=== PATIENT | female | born 1970 | race Caucasian/White ===

== ENCOUNTER → 2020-11-27 11:10 | Outpatient (BNVA) | payer BC, SELFPAY | PROVIDERS: PCP Internal Medicine; Visit Provider Obstetrics & Gynecology | DX: Z12.4 Encounter for screening for malignant neoplasm of cervix (principal) | CPT/HCPCS: 88175 ==

== ENCOUNTER → 2020-12-12 15:54 | Outpatient (BNVA) | payer BC, SELFPAY | PROVIDERS: PCP Internal Medicine; Visit Provider Obstetrics & Gynecology | DX: N93.9 Abnormal uterine and vaginal bleeding, unspecified (principal) | CPT/HCPCS: 76830 ==

== ENCOUNTER → 2020-12-23 12:26 | Outpatient (BNVA) | payer BC, SELFPAY | PROVIDERS: PCP Internal Medicine; Visit Provider Obstetrics & Gynecology | DX: N93.9 Abnormal uterine and vaginal bleeding, unspecified (principal) | CPT/HCPCS: 81025; 88305 ==

== ENCOUNTER 2021-01-03 15:20 | Outpatient (CLI) | payer BC, SELFPAY ==
--- NOTE | 2021-01-03 15:30 | MM_ITS ---
WS: [id number] BILATERAL DIGITAL SCREENING MAMMOGRAPHY WITH CAD CLINICAL INFORMATION: Z12.39 - Encounter for other screening for malignant neoplasm of breast HISTORY: Screening mammogram. No current complaints. History of bilateral breast reduction. COMPARISON: and December 02, 2015. TECHNIQUE: Bilateral CC and MLO views. FINDINGS: Scattered fibroglandular densities bilaterally. A few incidental punctate calcifications. Evidence of bilateral breast reductions. Slightly asymmetric breast tissue upper outer left breast unchanged ove r multiple prior examinations. No suspicious focal mass, asymmetry, calcifications, or architectural distortion. No evidence of malignancy. MM/[place] [id number] IMPRESSION: BI-RADS: 2-Benign FOLLOW UP: 1 Year Follow-up Recommend return to annual screening mammography.
== END 2021-01-03 15:21 | disposition home or self-care (01) ==
LOC: RADSHAW 15:22
PROVIDERS: PCP Internal Medicine; Visit Provider Obstetrics & Gynecology
DX: Z12.31 Encounter for screening mammogram for malignant neoplasm of breast (principal)
CPT/HCPCS: 77067

== ENCOUNTER 2021-10-31 09:15 | Outpatient (CLI) | payer OTHER, SELFPAY ==
--- NOTE | 2021-10-31 09:27 | CT_ITS ---
WS: [id number] CT ABDOMEN AND PELVIS NONCONTRAST HISTORY: RIGHT FLANK PAIN TECHNIQUE: Imaging performed through the abdomen and pelvis. Coronal and sagittal reformats are submi tted. All CT scans at [facility] use at least one of these dose optimization techniques: auto mated exposure control; mA and/or kV adjustment per patient size (includes targeted exams where dose is matched to clinical indication); or iterative reconstruction. DLP: 585.45 mGy.cm COMPARISON: None available. Lower thorax: 3 mm nodule at the LEFT lung base. Noncalcified. Heart is normal size. No hiatal hernia . Liver: Normal size liver. Very vague area of decreased attenuation in the periphery of the RIGHT lobe of the liver. This is too small to characterize and could represent a small cyst. No bile duct dilat ation. Gallbladder: Normal gallbladder. Pancreas: Normal size and attenuation. Normal pancreatic duct. No pancreatitis or mass. Spleen: Normal. Adrenal glands: Normal. No mass. Right kidney: Normal size kidney with no mass or hydronephrosis. Small extrarenal pelvis. Left kidney: Normal size kidney with no mass or hydronephrosis. Aorta: Mild atherosclerosis abdominal aorta with no aneurysm. No free fluid, intraperitoneal air or significant lymphadenopathy. GI tract: There is moderate diffuse fecal retention and constipation. There is increased fluid in the RIGHT colon. No obstructive pattern. The appendix is partially visualized and normal. Increased dens ity within the appendix suggesting developing appendicolith. Abdominal wall: Small umbilical hernia contains fat only. Pelvis: Normal size anteverted uterus. No pelvic masses or ascites. Osseous structures: Small subchondral cyst in the RIGHT superior acetabulum. CT/CT kidney stone [id number] IMPRESSION: 1. No renal obstruction or calcification. 2. No appendicitis. Increasing density within the appendix suggesting an appen dicolith developing. 3. No free fluid or adenopathy. 4. Diffuse constipation.
== END 2021-10-31 09:16 | disposition home or self-care (01) ==
LOC: RAD 09:21
PROVIDERS: PCP Internal Medicine; Visit Provider Internal Medicine
DX: R10.9 Unspecified abdominal pain (principal); K59.00 Constipation, unspecified
CPT/HCPCS: 74176

== ENCOUNTER → 2022-05-29 13:24 | Outpatient (BNVA) | payer OTHER, SELFPAY | PROVIDERS: PCP Internal Medicine; Visit Provider Specialist | DX: R20.0 Anesthesia of skin (principal); R20.2 Paresthesia of skin; G43.109 Migraine with aura, not intractable, without status migrainosus; R29.90 Unspecified symptoms and signs involving the nervous system; G43.101 Migraine with aura, not intractable, with status migrainosus | CPT/HCPCS: 36415; 80053; 84443; 85025; 85651 ==

== ENCOUNTER 2022-06-29 09:19 | Outpatient (CLI) | payer OTHER, SELFPAY ==
--- NOTE | 2022-06-29 09:15 | MR_ITS ---
WS: [id number] MRA HEAD TECHNIQUE: Axial 3-D TOF images obtained with axial images and axial, sagittal, and coronal 2-D refor matted images. CLINICAL INFORMATION: G43.109 - Migraine with aura, not intractable, without st... COMPARISON: MRA 4 29,016 FINDINGS: Distal vertebral arteries are patent. Basilar artery is patent. Normal vascularity to the TUB CHUCKER territo ry bilaterally. 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 Both ICAs are patent at the skull base. Normal vascularity to the MALINDA and MCA territories bilaterally . Azygos MALINDA. No evidence of high-grade proximal stenosis or aneurysm. Hypoplastic RIGHT A1 segment. Overall no significant changes since 2016. MR/MR angio head wo con [id number] IMPRESSION: 1. Stable incidental fenestrated basilar artery. No flow-limiting stenosis. 2. Normal intracranial MRA. No significant changes since 2016.
== END 2022-06-29 09:20 | disposition home or self-care (01) ==
PROVIDERS: PCP Internal Medicine; Visit Provider Specialist
DX: G43.109 Migraine with aura, not intractable, without status migrainosus (principal)
CPT/HCPCS: 70544

== ENCOUNTER 2022-06-29 09:19 | Outpatient (CLI) | payer OTHER, SELFPAY ==
--- NOTE | 2022-06-29 09:30 | MR_ITS ---
WS: [id number] MRI HEAD WITHOUT CONTRAST TECHNIQUE: Sagittal T1, T2 axial, T2 axial FLAIR, axial and coronal T1 images, axial susceptibility w eighted imaging, axial diffusion weighted images, and coronal T2 images were obtained. CLINICAL INFORMATION: G43.109 - Migraine with aura, not intractable, without st... COMPARISON: MRI FINDINGS: No evidence of restricted diffusion to suggest acute ischemia. Ventricular system and basal cisterns are patent. Normal ruiz-white differentiation. No suspicious intracranial signal abnormalities. Seble l posterior fossa. Normal vascular flow voids at the skull base. No extra-axial fluid collections. Mi ld mucosal thickening paranasal sinuses. Mastoid air cells well aerated. Normal optic chiasm and pituitary infundibulum. Temporal lobes and hippocampal formations are normal in appearance. No hemosiderin on susceptibly weighted images. MR/MR head wo con* [id number] IMPRESSION: 1. No evidence of restricted diffusion to suggest acute ischemia. 2. No suspicious intracranial signal abnormalities. 3. Mild mucosal thickening in the paranasal sinuses. Mastoid air cells well ae rated. 4. No hemosiderin on susceptibly weighted images. 5. No acute intracranial findings and no changes since
== END 2022-06-29 09:20 | disposition home or self-care (01) ==
LOC: RAD 09:20
PROVIDERS: PCP Internal Medicine; Visit Provider Specialist
DX: G43.109 Migraine with aura, not intractable, without status migrainosus (principal)
CPT/HCPCS: 70551

== ENCOUNTER 2023-01-25 11:33 | Outpatient (CLI) | payer OTHER, SELFPAY ==
--- NOTE | 2023-01-25 11:44 | MM_ITS ---
WS: [id number] BILATERAL SCREENING DIGITAL TOMOSYNTHESIS MAMMOGRAM WITH CAD HISTORY: SCREENING COMPARISON: 01/03/2021, 11/28/2018 Bilateral CC and MLO views with tomosynthesis and synthetic mammography submitted. Computer aided det ection analyzed. Breast composition: There are scattered areas of fibroglandular density. No suspicious masses, microc alcifications or architectural distortion. MM/[place] [id number] IMPRESSION: BI-RADS: 1-Negative FOLLOW UP: 1 Year Follow-up
== END 2023-01-25 11:34 | disposition home or self-care (01) ==
LOC: RAD 11:37
PROVIDERS: PCP Internal Medicine; Visit Provider Internal Medicine
DX: Z12.31 Encounter for screening mammogram for malignant neoplasm of breast (principal)
CPT/HCPCS: 77063; 77067

== ENCOUNTER 2024-03-23 15:09 | Outpatient (CLI) | payer OTHER, SELFPAY ==
--- NOTE | 2024-03-23 15:18 | MM_ITS ---
WS: [id number] BILATERAL 3D TOMOSYNTHESIS DIGITAL SCREENING MAMMOGRAPHY WITH CAD CLINICAL INFORMATION: SCREENING HISTORY: Screening mammogram. History of breast reduction COMPARISON: 2022 TECHNIQUE: Bilateral CC and MLO views. FINDINGS: Scattered fibroglandular densities bilaterally. No suspicious focal mass, asymmetry, calcifications, or architectural distortion. No evidence of malignancy. A few incidental punctate calcifications. MM/[place] [id number] IMPRESSION: BI-RADS: 2-Benign FOLLOW UP: 1 Year Follow-up Recommend return to annual screening mammography.
== END 2024-03-23 15:10 | disposition home or self-care (01) ==
LOC: RAD 15:11
PROVIDERS: PCP Internal Medicine; Visit Provider Internal Medicine
DX: Z12.31 Encounter for screening mammogram for malignant neoplasm of breast (principal); R92.323 Mammographic fibroglandular density, bilateral breasts
CPT/HCPCS: 77063; 77067

== ENCOUNTER 2025-01-01 11:07 | Emergency (ER) | payer OTHER, SELFPAY ==
[2025-01-01 11:27] VITALS: BP 113/78; PULSE 89; TEMP 37.1; O2SAT 97; BMI 27.4
--- NOTE | 2025-01-01 13:33 | CT_ITS ---
WS: [id number] CT HEAD TECHNIQUE: Noncontrast CT of the head obtained from the skullbase to the vertex. CLINICAL INFORMATION: fairchild COMPARISON: MRI 07/13 DLP: 1025.[address] scans at [facility] use at least one of these dose optimization techniques: automated exposure control; mA and/or kV adjustment per patient size (includes targeted exams where dose is matched to clinical indication); or iterative reconstruction. FINDINGS: No evidence of intracranial hemorrhage or mass effect. Ventricular system and basal cisterns are patent. No extra-axial fluid collections. No evidence of mass or mass effect. Normal ruiz-white differentiation. Mild mucosal thickening in the paranasal sinuses. Small amount of fluid in the sphenoid sinus and ethmoid air cells. Mastoid air cells are well aerated. CT/CT head wo con* [id number] IMPRESSION: 1. No evidence of intracranial hemorrhage or mass effect. 2. Mild ethmoid and sphenoid sinusitis. 3. No acute intracranial findings.
--- NOTE | 2025-01-01 13:38 | W.ED.HA ---
HPI - Headache General: Chief Complaint: Headache Stated Complaint: sent from [employer] for [facility]oss Time Seen by Provider: 01/01/25 13:25 Source: patient Mode of arrival: ambulatory Limitations: no limitations History of Present Illness: 54-year-old female who has a history of ocular migraines she states she been having increasing ocular migraines over the last week. States she has periods of blindness which is common with her ocular migraines she has had some periods of aphasia few days ago as well denies any symptoms today she has a mild headache today. She was concerned as she has had more migraines recently than typical. She did recently have RSV as well. Associated symptoms: Deny chest pain, fever(s), nausea, rash or vomiting Related Data Home Medications ?Medication ?Instructions ?Recorded ?Confirmed atorvastatin 10 mg tablet 20 mg PO DAILY 05/29/22 01/01/25 cholecalciferol (vitamin D3) 50 50 mcg PO DAILY 05/29/22 01/01/25 mcg (2,000 unit) capsule escitalopram oxalate 10 mg tablet 20 mg PO DAILY 05/29/22 01/01/25 (Lexapro) azithromycin 250 mg tablet 250 mg PO DAILY 01/01/25 01/01/25 eszopiclone 1 mg tablet 1 mg PO QPM 01/01/25 01/01/25 progesterone micronized 200 mg 200 mg PO .EVERY OTHER DAY 01/01/25 01/01/25 capsule tirzepatide 2.5 mg/0.5 mL 2.5 mg SUBCUT Q7D 01/01/25 01/01/25 subcutaneous pen injector (Mounjaro) Allergies Allergy/AdvReac Type Severity Reaction Status Date / Time Sulfa (Sulfonamide Allergy [facility] Verified 01/01/25 11:34 Antibiotics) Nico Reaction Review of Systems Const: Denies: fever(s), chills, body aches or change in appetite Eyes: Reports: blurry vision ENMT: Denies: throat pain or dental pain Card: Denies: chest pain Resp: Denies: dyspnea GI: Denies: abdominal pain, nausea, vomiting or diarrhea Musc: Denies: neck pain or back pain Skin/Breast: Denies: rash Neuro: Reports: headache(s) PFS ED PFSH: Medical History Diabetes mellitus Type 2 diabetes mellitus diagnosed in 2006. She states that she is not quite sure when her last hemoglobin A1c was done but it was normal. Depression OCD and depression diagnosed in 2006 managed with Lexapro managed by her PMD High cholesterol Has had high cholesterol since her early 20s however only started medication after her pregnancies in 2006. No pertinent past medical history Denies asthma, hypertension, seizures, DVT/PE PCP: Dr. Tatianna Lloyd Surgical History History of bladder surgery X 2 2007--had an anterior repair done for prolapse however is not quite sure about the details. 11/01/2020--suburethral bladder sling performed for stress urinary incontinence at [facility] by urogynecology Dr. Guzman. ---> Operative reports received and scanned into chart. S/P bilateral breast reduction 2007. S/P section X 2 2004 and 2006. Family History Father Diabetes Hyperlipidemia Grandmother Heart disease maternal Denies family history of Colon cancer Ovarian cancer Breast cancer Hypertension Uterine cancer Thyroid disease Stroke Social History Smoking and tobacco/nicotine status: never used tobacco/nicotine Physical Exam Const: COMMON NORMALS: no acute distress, patient oriented x3 and healthy appearing HENMT: COMMON NORMALS: normocephalic and atraumatic HEAD & SCALP: normocephalic and atraumatic Eye: COMMON NORMALS: Equal, round and reactive pupils present PUPIL: Yes Equal, round and reactive pupils present Neck/C-Spine: COMMON NORMALS: full ROM and supple Chest: COMMONS NORMALS: normal inspection of the chest Resp: COMMON NORMALS: normal respiratory effort Cardio: COMMON NORMALS: regular rate RATE: regular rate Extremity: COMMON NORMALS: normal to inspection and full ROM Neuro: COMMON NORMALS: patient oriented x3, moves all extremities and no focal motor deficits CRANIAL NERVES: Yes CN normal except as noted SPEECH: speech normal GAIT: Yes Normal gait present MOTOR EXAM: 5/5 motor strength present throughout Psych: COMMON NORMALS: mental status grossly normal, Normal thought process present and cooperative THOUGHT PROCESS: Normal thought process present Skin: COMMON NORMALS: no rashes or lesions noted and no wounds GENERAL SKIN EXAM: no rashes or lesions noted Course Vital Signs: Vital signs: Vital Signs Temperature 98.8 F 01/01/25 11:27 Pulse Rate 89 01/01/25 11:27 Blood Pressure 113/78 01/01/25 11:27 Pulse Oximetry 97 01/01/25 11:27 Oxygen Delivery Me thod Room Air 01/01/25 11:27 MDM - Headache Medical Decision Making Patient presents here with headaches she is also on some loss of vision on slurred speech at times likely migraine with an aura she is at her baseline currently MRI here showed no acute abnormality she has no signs of a stroke she stable for discharge follow-up with PCP return if worsening. Medical Records I reviewed the patient's medical records. Lab Data I reviewed the patient's lab results. 01/01/25 14:14 01/01/25 14:[address] 01/01/25 13:33 IMPRESSION: 1. No evidence of intracranial hemorrhage or mass effect. 2. Mild ethmoid and sphenoid sinusitis. 3. No acute intracranial findings. Laboratory Results WBC 3.89 10^3/uL (3.29-11.43) 01/01/25 14:14 RBC 4.11 10^6/uL (3.85-5.65) 01/01/25 14:14 Hgb 13.00 g/dL (11.27-16.99) 01/01/25 14:14 Hct 39.4 % (36-47) 01/01/25 14:14 MCV 95.9 fl (85-98) 01/01/25 14:14 MCH 31.6 pg (27-33) 01/01/25 14:14 MCHC 33.0 g/dL (30-55) 01/01/25 14:14 RDW 12.7 % (12.1-15.1) 01/01/25 14:14 Plt Count 199 10^3/cmm (157-399) 01/01/25 14:14 MPV 8.9 fL (7.4-10.4) 01/01/25 14:14 Neut % (Auto) 58.3 % 01/01/25 14:14 Lymph % (Auto) 27.5 % 01/01/25 14:14 Barnes % (Auto) 11.8 % 01/01/25 14:14 Eos % (Auto) 1.3 % 01/01/25 14:14 Baso % (Auto) 0.8 % 01/01/25 14:14 Neut # (Auto) 2.27 10^3/uL (1.8-7.7) 01/01/25 14:14 Lymph # (Auto) 1.1 10^3/uL (0.8-4.8) 01/01/25 14:14 Barnes # (Auto) 0.5 10^3/uL (0.2-0.9) 01/01/25 14:14 Eos # (Auto) 0.1 10^3/uL (0.0-0.8) 01/01/25 14:14 Baso # (Auto) 0.0 10^3/uL (0.0-0.1) 01/01/25 14:14 Nucleated RBC % (auto) 0 % 01/01/25 14:14 Nucleated RBCs # 0.0 /100WBC 01/01/25 14:14 Sodium 137 mmol/L (136-145) 01/01/25 14:14 Potassium 4.0 mmol/L (3.5-5.1) 01/01/25 14:14 Chloride 100 mmol/L (98-107) 01/01/25 14:14 Carbon Dioxide 25 mmol/L (22-29) 01/01/25 14:14 Anion Gap 16.0 (5-19) 01/01/25 14:14 BUN 9 mg/dL (6-20) 01/01/25 14:14 Creatinine 0.9 mg/dL (0.5-0.9) 01/01/25 14:14 GFR Calculation 65.8 mL/min (90-130) L 01/01/25 14:14 Glucose 87 mg/dL (65-115) 01/01/25 14:14 Calculated Osmolality 282 mOsm/kg (285-295) L 01/01/25 14:14 Calcium 8.8 mg/dL (8.5-10.5) 01/01/25 14:14 Total Bilirubin 0.2 mg/dL (0.15-1.2) 01/01/25 14:14 AST 20 U/L (0-32) 01/01/25 14:14 ALT 21 U/L (0-33) 01/01/25 14:14 Alkaline Phosphatase 86 U/L (35-105) 01/01/25 14:14 Total Protein 6.9 g/dL (6.6-8.7) 01/01/25 14:14 Albumin 4.0 g/dL (3.5-5.2) 01/01/25 14:14 Globulin 2.9 g/dL (1.3-4.6) 01/01/25 14:14 All radiology interpretation(s) finalized by discharge Discharge Plan Discharge Patient Disposition: Home Clinical Impression: Headache Condition: Stable Prescriptions: No Action atorvastatin 10 mg tablet 20 mg PO DAILY escitalopram oxalate [Lexapro] 10 mg tablet 20 mg PO DAILY cholecalciferol (vitamin D3) 50 mcg (2,000 unit) capsule 50 mcg PO DAILY progesterone micronized 200 mg capsule 200 mg PO .EVERY OTHER DAY eszopiclone 1 mg tablet 1 mg PO QPM Mounjaro 2.5 mg/0.5 mL pen injector 2.5 mg SUBCUT Q7D azithromycin 250 mg tablet 250 mg PO DAILY Discharge Orders: Discharge ED (Routine); Ordered 01/01/25 Ordered By: Byron Ag Referrals: Jodi Lloyd MD [Primary Care Provider] - Discharge Diet: Advance as tolerated Discharge Activity: Resume usual activity Patient Instructions: General Headache (ED) Print Language: Croatian Coding Level of Care Code ED Sheriff Officer for Pia Deshpande
[2025-01-01 14:23] LABS: Basophils % 0.8 %; Eosinophils # 0.1 10^3/uL (0.0-0.8); Eosinophils % 1.3 %; Hematocrit 39.4 % (36-47); Lymphocytes # 1.1 10^3/uL (0.8-4.8); Lymphocytes % 27.5 %; Mean Corpuscular Hemoglobin 31.6 pg (27-33); Mean Corpuscular Volume 95.9 fl (85-98); Mean Platelet Volume 8.9 fL (7.4-10.4); Monocytes # 0.5 10^3/uL (0.2-0.9); Monocytes % 11.8 %; Neutrophils # 2.27 10^3/uL (1.8-7.7); Neutrophils % 58.3 %; Nucleated Red Blood Cells % 0 %; Platelet Count 199 10^3/cmm (157-399); Red Blood Count 4.11 10^6/uL (3.85-5.65); Red Cell Distribution Width 12.7 % (12.1-15.1); White Blood Count 3.89 10^3/uL (3.29-11.43)
--- NOTE | 2025-01-01 14:27 | MR_ITS ---
WS: [id number] MRI HEAD WITHOUT CONTRAST TECHNIQUE: Sagittal T1, T2 axial, T2 axial FLAIR, axial and coronal T1 images, axial susceptibility weighted imaging, axial diffusion weighted images, and coronal T2 images were obtained. Coronal FLAIR imaging CLINICAL INFORMATION: fairchild COMPARISON: 2021 FINDINGS: No evidence of restricted diffusion to suggest acute ischemia. Ventricular system and basal cisterns are patent. Normal ruiz-white differentiation. No suspicious intracranial signal abnormalities. Normal posterior fossa. Normal vascular flow voids at the skull base. No extra- axial fluid collections. Mild mucosal thickening paranasal sinuses. Mastoid air cells well aerated. Normal optic chiasm and pituitary infundibulum. Temporal lobes and hippocampal formations are normal in appearance. No hemosiderin on susceptibly weighted images. No significant changes compared to 2021. MR/MR head wo con* [id number] IMPRESSION: 1. No significant changes compared to previous. 2. No evidence of restricted diffusion to suggest acute ischemia. 3. No suspicious intracranial signal abnormalities. 4. Mild paranasal sinusitis.
--- NOTE | 2025-01-01 14:27 | MR_ITS ---
WS: [id number] MRA HEAD TECHNIQUE: Axial 3-D TOF images obtained with axial images and axial, sagittal, and coronal 2-D reformatted images. CLINICAL INFORMATION: fairchild COMPARISON: 2021 and 2015. FINDINGS: Small amount of susceptibility artifact in the posterior fossa and CHAIR INSPECTOR territory. Distal vertebral arteries are patent. Basilar artery is patent. Normal vascularity to the CHAIR INSPECTOR territory bilaterally. Small amount of artifact in the CHAIR INSPECTOR territory. 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 ICAs are patent at the skull base. Normal vascularity to the MALINDA and MCA territories bilaterally. Azygos MALINDA. No evidence of proximal flow-limiting stenosis or aneurysm. Hypoplastic RIGHT A1 segment. MR/MR angio head wo con [id number] IMPRESSION: 1. No evidence of intracranial flow-limiting stenosis. 2. Stable incidental fenestrated basilar artery. 3. No significant changes since 2021.
[2025-01-01] MEDS: ketorolac 30 mg/mL INJ IVP (14:29)
[2025-01-01] MEDS: sodium chloride 0.9% 1,000 ML 999 ML IV (14:29)
[2025-01-01] MEDS: ondansetron 2 mg/ML SDV 2 mL 4 MG IVP (14:29)
[2025-01-01 14:47] LABS: Alanine Aminotransferase 21 U/L (0-33); Alkaline Phosphatase 86 U/L (35-105); Aspartate Amino Transferase 20 U/L (0-32); Blood Urea Nitrogen 9 mg/dL (6-20); Calcium 8.8 mg/dL (8.5-10.5); Carbon Dioxide 25 mmol/L (22-29); Chloride 100 mmol/L (98-107); Creatinine Clr Calc Pharmacy 68.7546; Globulin 2.9 g/dL (1.3-4.6); Glomerular Filtration Rate 65.8 mL/min (90-130); Glucose 87 mg/dL (65-115); Osmolality Calculated 282 mOsm/kg (285-295); Sodium 137 mmol/L (136-145); Total Bilirubin 0.2 mg/dL (0.15-1.2); Total Protein 6.9 g/dL (6.6-8.7)
[2025-01-01 17:04] VITALS: BP 94/73; PULSE 83; RESP 16; O2SAT 97
== END 2025-01-01 17:03 | disposition home or self-care (01) ==
PROVIDERS: Emergency Provider Emergency Medicine; PCP Internal Medicine
DX: R51.9 Headache, unspecified (principal); E11.9 Type 2 diabetes mellitus without complications
CPT/HCPCS: 36415; 70450; 70544; 70551; 80053; 85025; 96374; 96375; 99285; J1885; J2405; J7030